=== PATIENT | male | born 1935 | race Caucasian/White ===

== ENCOUNTER 2018-10-16 16:22 | Emergency (ER) | payer MEDICARE, OTHER ==
[~2018-10-16] VITALS: Ht 175.3 cm; Wt 75.7 kg
[2018-10-16] MEDS ORDERED: LIDOCAINE 1% INJ 20 ML 20 ML VIAL INJ ONE (16:45)
--- NOTE | 2018-10-16 16:50 | NUR ---
ICE GIVEN TO PATIENT
--- NOTE | 2018-10-16 16:58 | Diagnostic Imaging Report ---
INDICATION: Fall with laceration to the right hand. TIME OF EXAM: 04:47 p.m. FINDINGS: Three views of the right hand were obtained. There appears to be dislocation at the second MCP joint. The proximal phalanx of the second finger appears to be dislocated dorsally. There appears to result in a fracture of the second metacarpal head. The remaining metacarpals are intact. The phalanges are intact. The carpus is unremarkable. The visualized distal radius and ulna are intact. There are atherosclerotic changes in the radial and ulnar arteries. IMPRESSION: Second MCP joint dislocation with the proximal phalanx dislocated dorsally. This does result in a fracture of the distal second metacarpal as well. Dictated by: Dictated on workstation # [id number]
--- NOTE | 2018-10-16 17:39 | Diagnostic Imaging Report ---
INDICATION: Post reduction. TIME OF EXAM: 5:27 p.m. COMPARISON: Correlation is made with prior study earlier the same day. FINDINGS: There has been interval reduction of the dislocation of the second MCP joint. Alignment is now anatomic. Previously noted fracture is not well seen on this post-reduction film. IMPRESSION: Satisfactory reduction of the second MCP joint dislocation. Dictated by: Dictated on workstation # [id number]
[2018-10-16] MEDS ORDERED: ACHD5005 PO (18:24)
[2018-10-16] MEDS ORDERED: CEPH-507 PO (18:24)
--- NOTE | 2018-10-16 18:24 | ED Upper Extremity ---
General Chief Complaint: Trauma-Non Activation Stated Complaint: CUT HAND MIGHT BE BROKE FELL IN A DITCH Nursing Triage Note: PT FELL IN A DITCH WHILE WEEDEATING. RIGHT HAND PAIN ET LACERATION Nursing Sepsis Screen: No Definite Risk Source: patient, family Exam Limitations: no limitations History of Present Illness Date Seen by Provider: Oct 16, 2018 Time Seen by Provider: 16:30 Initial Comments 83-year-old male who presents to the emergency room with complaints of obvious deformity to his right hand and a laceration to the palmar surface of his right hand. He reports that he stepped in a hole that caused him to fall into a ditch while weed eating just prior to arrival. He thinks he cut his hand on a piece of glass in the road ditch. He has deformity to the second digit of the right hand. He denies other injuries from the fall denies hitting his head, denies neck pain. Location Injury Occurred: PT'S HOME Onset: just prior to arrival Pain/Injury Location: right hand Method of Injury: fell Allergies and Home Medications Allergies Coded Allergies: Tetanus Vaccines and Toxoid (Verified Allergy, Unknown, 10/16/18) Home Medications Cephalexin 500 Mg Capsule, 500 MG PO TID Prescribed by: WILDER CAMPOS on 10/16/181823 Hydrocodone Bit/Acetaminophen 1 Tab Tab, 1-2 EACH PO Q6H PRN for PAIN-MODERATE Prescribed by: WILDER CAMPOS on 10/16/181823 Patient Home Medication List Home Medication List Reviewed: Yes Review of Systems Constitutional: see HPI; No chills, No fever Musculoskeletal: see HPI, joint pain (right second finger pain) Skin: see HPI, other (laceration to the palmar surface of the right hand.) All Other Systems Reviewed Negative Unless Noted: Yes Past Ybkafpp-Djdhkt-Bndrvm Hx Patient Social History Alcohol Use: Denies Use Recreational Drug Use: No Recent Foreign Travel: No Contact w/Someone Who Travel: No Recent Infectious Disease Expo: No Recent Hopitalizations: No Physical Abuse: No Sexual Abuse: No Mistreated: No Fear: No Seasonal Allergies Seasonal Allergies: No Past Medical History Surgeries: Yes Respiratory: No Cardiac: Yes Aneurysm, Hypertension Neurological: Yes Stroke Genitourinary: No Endocrine: No HEENT: No Integumentary: No Physical Exam Vital Signs Vital Signs - First Documented 10/16/18 10/16/18 16:29 18:47 Temp 98.1 Pulse 63 Resp 18 B/P (MAP) 126/72 (90) Pulse Ox 95 O2 Delivery Room Air Capillary Refill : Less Than 3 Seconds Height, Weight, BMI Height: 5'9.00" Weight: 167lbs. oz. 75.023578bg; BMI Method:Stated Procedures/Interventions Wound Location: Upper Extremities Other Wound Location Right palmar surface Wound Length (cm): 7 Wound's Depth, Shape: superficial, linear Irrigated w/ Saline (ccs): 500 Anesthesia: 1% Lidocaine Volume Anesthetic (ccs): 10 Suture: Ethlion Suture Size: 4-0 Number of Sutures: 9 Progress The wound was cleaned and irrigated with normal saline approximately 500 mL's. The wound was anesthetized with lidocaine 1% without epinephrine. The wound was approximated and closed with 9 simple interrupted sutures of 4-0 Ethilon. Splinting and Joint Reduction : Pre-Proc Neuro Vasc Exam: normal Post-Proc Neuro Vasc Exam: normal Progress Right second finger. The joint was anesthetized with 1% lidocaine without epinephrine and the finger was reduced. Successful reduction was confirmed with x-ray. Progress/Results/Core Measures Results/Orders My Orders Orders - WILDER CAMPOS Hand, Right, 3 Views (10/16/18 16:36) Lidocaine 1% Inj 20 Ml (Xylocaine 1% Inj (10/16/18 16:45) Hand, Right, 2 Views (10/16/18 17:19) Cephalexin Capsule (Keflex Capsule) (10/16/18 18:45) Rx-Hydrocodone/Apap 5-325 Mg (Rx-Vicodin (10/16/18 18:45) Medications Given in ED Current Medications Medications Dose Ordered Sig/Fede Route Start Time Stop Time Status Last Admin Dose Admin Acetaminophen/ Hydrocodone Bitart 1 ea Q4H PRN PO 10/16/18 18:45 10/16/18 18:49 DC 10/16/18 18:43 1 EA Cephalexin HCl 500 mg ONCE ONCE PO 10/16/18 18:45 10/16/18 18:46 DC 10/16/18 18:42 500 MG Vital Signs/I&O 10/16/18 10/16/18 16:29 18:47 Temp 98.1 Pulse 63 87 Resp 18 20 B/P (MAP) 126/72 (90) Pulse Ox 95 100 O2 Delivery Room Air Room Air Progress Progress Note : Time: 17:00 Progress Note I have discussed the case with Dr. Barnett at this time. He recommends placing the patient in a finger splint after relocation of the joint. He will follow the patient in outpatient services. He also recommends the use of nylon sutures. Departure Impression Primary Impression: Fracture, metacarpal shaft, open Additional Impression: Dislocation of finger, open Disposition: 01 HOME, SELF-CARE Condition: Stable/Unchanged Departure-Patient Inst. Decision time for Depature: 18:21 Referrals: RAQUEL BARNETT MD Patient Instructions: Finger Dislocation, Finger Fracture (DC) Add. Discharge Instructions: Take medications as directed. Call Dr. Barnett's office to schedule an appointment first thing tomorrow morning for further evaluation of your finger. Watch for signs of infection such as increased redness, swelling, drainage, pain. Change the dressing daily or as needed. Ice to the sore areas at 20 minute intervals. Return back to the emergency room in 7 days to have the sutures removed. Wear the splint at all times. Follow-up with primary care provider as needed. All discharge instructions reviewed with patient and/or family. Voiced understanding. Scripts Hydrocodone Bit/Acetaminophen (Hydrocodone/Acetaminophen 5/325mg Tablet) 1 Tab Tab 1-2 EACH PO Q6H PRN for PAIN-MODERATE MDD 10, #14 TAB Prov: WILDER CAMPOS 10/16/18 Cephalexin (Keflex) 500 Mg Capsule 500 MG PO TID for 10 Days, #30 CAP Prov: WILDER CAMPOS 10/16/18 WILDER CAMPOS Oct 16, 2018 18:24
[2018-10-16] MEDS ORDERED: RX-HYDROCODONE/APAP 5/325 MG #4 TAB PK PO PRN (18:45)
[2018-10-16] MEDS ORDERED: CEPHALEXIN 250 MG (KEFLEX) CAP PO ONE (18:45)
[2018-10-16 18:47] VITALS: BP 126/72
== END 2018-10-16 18:47 | disposition home or self-care (01) ==
LOC: EDUNIT# 16:22 → ER 16:26
DX: S62.310A Displaced fracture of base of second metacarpal bone, right hand, initial encounter for closed fracture (principal); S63.280A Dislocation of proximal interphalangeal joint of right index finger, initial encounter; I10 Essential (primary) hypertension; Z86.73 Personal history of transient ischemic attack (TIA), and cerebral infarction without residual deficits; Z88.7 Allergy status to serum and vaccine; W17.2XXA Fall into hole, initial encounter; W25.XXXA Contact with sharp glass, initial encounter
CPT/HCPCS: 73120; 73130